=== PATIENT | male | born 1960 | race Caucasian/White ===

== ENCOUNTER → 2021-09-20 | Outpatient (CLI) | payer MEDICAID ==
[~2021-09-20] MED LIST: ALBU8.5H8 IH; AMLO10TA55 PO; BUTA-256 PO; CLOP75TA32 PO; COMBIH IH; CYCL10TA17 PO; DILT-95 PO; DSSL PO; GABA600T10 PO; INSU100C3 SQ; INSU100C4 SQ; LISI20TA24 PO; MULT-248 PO; PANT40TA54 PO; PRAV40TA3 PO; SENN8.6T20 PO; TOPI100T38 PO
== END | disposition home or self-care (01) ==
LOC: RADMN 10:37
PROVIDERS: ATTEND Radiology Body Imaging
DX: R13.10 Dysphagia, unspecified (principal)
CPT/HCPCS: 74230; 92611